=== PATIENT | female | born 1955 | race Caucasian/White ===

== ENCOUNTER 2021-03-30 16:54 | Emergency (ER) | payer SELFPAY ==
[~2021-03-30] VITALS: Ht 154.9 cm; Wt 78.0 kg
[2021-03-30] MEDS ORDERED: MAGNESIUM/ALUMINUM HYDROXIDE/SIMETHICONE 30ML UDC PO STA (22:31)
[2021-03-30] MEDS ORDERED: METOCLOPRAMIDE HCL 10MG TABLET PO ONE (22:45)
[2021-03-30 23:24] LABS: BASOPHILS % 0.7 % (0.0-2.0); EOSINOPHILS % 0.8 % (0.0-5.0); HEMATOCRIT. 33.9 % (36.0-48.0); HEMOGLOBIN. 10.9 g/dL (12.0-16.0); LYMPHOCYTES % 24.2 % (20.0-50.0); MEAN CORPUSCULAR VOLUME 84.5 fL (81.0-99.0); MEAN PLATELET VOLUME 7.6 fl (7.4-10.4); MONOCYTES % 7.8 % (2.0-8.0); NEUTROPHILS % 66.5 % (40.0-76.0); PLATELET 348 x1000/uL (130-400); RED BLOOD CELL COUNT 4.01 mill/uL (4.2-5.4); RED CELL DISTRIBUTION WIDTH 16.5 % (11.6-14.6)
[2021-03-30 23:28] LABS: CHLORIDE 109 mEq/L (98-107)
[2021-03-31] MEDS ORDERED: PROT20 MT (00:49)
[2021-03-31] MEDS ORDERED: METO5TAB86 MT (00:49)
[2021-03-31 01:00] VITALS: BP 140/84
== END 2021-03-31 01:01 | disposition home or self-care (01) ==
LOC: ER 16:54
DX: K44.9 Diaphragmatic hernia without obstruction or gangrene (principal); F41.8 Other specified anxiety disorders; R03.0 Elevated blood-pressure reading, without diagnosis of hypertension
CPT/HCPCS: 36415; 71045; 80053; 83690; 84484; 85025; 93005; 99285; J8597